=== PATIENT | female | born 1980 | race Caucasian/White ===

== ENCOUNTER → 2021-01-16 11:27 | Outpatient (CLI) | payer OTHER, SELFPAY | PROVIDERS: PCP Family Medicine; Visit Provider Family Medicine | DX: J02.9 Acute pharyngitis, unspecified (principal) | CPT/HCPCS: 87070 ==

== ENCOUNTER → 2021-08-20 10:22 | Outpatient (CLI) | payer OTHER, SELFPAY ==
[2021-08-20 19:44] LABS: Add Manual Diff / Slide Review NO; Basophils Absolute Auto 0 /uL (0-100); Basophils Percent Auto 0.3 % (0-2); Eosinophils Absolute Auto 0 /uL (0-450); Eosinophils Percent Auto 0.8 % (2-4); Hemoglobin 13.5 g/dL (12.0-16.0); Lymphocytes Absolute Auto 1400 /uL (1100-4500); Lymphocytes Percent Auto 24.7 % (25-40); Mean Corpuscular HGB Conc 33.8 % (30-36); Mean Corpuscular Hemoglobin 30.9 PG (26-34); Mean Corpuscular Volume 91.4 fL (80-100); Monocytes Absolute Auto 400 /uL (0-900); Monocytes Percent Auto 6.7 % (3-14); Neutrophils Absolute Auto 3700 /uL (1500-7000); Neutrophils Percent Auto 67.5 % (50-75); Platelet Count 193 X10^3/uL (150-400); Red Blood Cell Count 4.37 X10^6/uL (4.0-5.2); Red Cell Distribution Width 12.2 % (11.6-14.8); White Blood Cell Count 5.6 X10^3/uL (4.5-11.0)
[2021-08-20 19:59] LABS: Alanine Aminotransferase 14 IU/L (<35); Albumin 4.8 g/dL (3.5-5.0); Albumin Globulin Ratio 1.6 (1.0-2.8); Alkaline Phosphatase 38 U/L (38-126); Aspartate Aminotransferase 26 IU/L (14-36); BUN Creatinine Ratio 19.2 (6-22); Bilirubin Total 1.1 mg/dL (0.2-1.3); Blood Urea Nitrogen 14 mg/dL (7-17); Calcium 9.8 mg/dL (8.4-10.2); Carbon Dioxide 28 mmol/L (22-32); Chloride 105 mmol/L (98-107); Estimated Glomerular Filt Rate > 60.0 mL/min (>60); Glucose 95 mg/dL (70-100); HEMOLYSIS < 15 (0-50); Potassium 4.6 mmol/L (3.4-5.1); Sodium 141 mmol/L (137-145); Total Protein 7.8 g/dL (6.3-8.2)
== END ==
PROVIDERS: PCP Family Medicine; Visit Provider Physician Assistant
DX: I73.00 Raynaud's syndrome without gangrene (principal)
CPT/HCPCS: 80053; 85025

== ENCOUNTER → 2021-09-15 11:16 | Outpatient (CLI) | payer OTHER, SELFPAY ==
--- NOTE | 2021-09-15 11:17 | DI.MG.S_ITS ---
BILATERAL DIGITAL SCREENING MAMMOGRAM 3D/2D WITH CAD: 09/15/2021 CLINICAL: Routine screening. Baseline exam. No prior exams were available for comparison. The tissue of both breasts is heterogeneously dense. This may lower the sensitivity of mammography. Current study was also evaluated with a Computer Aided Detection (CAD) system. No significant masses, calcifications, or other findings are seen in either breast. IMPRESSION: NEGATIVE There is no mammographic evidence of malignancy. A 1 year screening mammogram is recommended. This exam was interpreted at Station ID: [id number]. NOTE: For mammograms, a report in lay terms will be sent to the patient. Approximately 15% of breast malignancies will not be visualized mammographically. In the management of a palpable breast mass, a negative mammogram must not discourage biopsy of a clinically suspicious lesion. Electronically Signed By: Pantera Nguyễn M.D., jr/milton:09/17/2021 08:48:42 letter sent: Normal Exam ACR BI-RADS Category 1: Negative 3341F
== END ==
PROVIDERS: PCP Physician Assistant; Referring Provider Physician Assistant; Visit Provider Physician Assistant
DX: Z12.31 Encounter for screening mammogram for malignant neoplasm of breast (principal)
CPT/HCPCS: 77063; 77067

== ENCOUNTER → 2022-11-15 10:51 | Outpatient (CLI) | payer OTHER, SELFPAY ==
--- NOTE | 2022-11-15 | DI.MG.S_ITS ---
BILATERAL DIGITAL SCREENING MAMMOGRAM 3D/2D WITH CAD: 11/15/2022 CLINICAL: Routine screening. Family history of breast cancer. Comparison is made to exam dated: 09/15/2021 mammogram - [facility]. Both breasts are extremely dense, which lowers the sensitivity of mammography (category d />75% glandular tissue). Current study was also evaluated with a Computer Aided Detection (CAD) system. No significant masses, calcifications, or other findings are seen in either breast. There has been no significant interval change. IMPRESSION: NEGATIVE There is no mammographic evidence of malignancy. A 1 year screening mammogram is recommended. Based on the Tyrer Cuzick model (a risk assessment model) the patient's lifetime risk is 19.7% and her 10 year risk is 2.8%. According to the ACR, ACS, and NCCN guidelines, an annual breast MRI exam along with mammogram is recommended if the patient's lifetime risk is 20% or greater. This exam was interpreted at Station ID: [id number]. NOTE: For mammograms, a report in lay terms will be sent to the patient. Approximately 15% of breast malignancies will not be visualized mammographically. In the management of a palpable breast mass, a negative mammogram must not discourage biopsy of a clinically suspicious lesion. Electronically Signed By: Bennie eaton/milton:11/15/2022 13:22:23 letter sent: Normal Exam ACR BI-RADS Category 1: Negative 3341F
== END ==
PROVIDERS: PCP Physician Assistant; Referring Provider Physician Assistant; Visit Provider Physician Assistant
DX: Z12.31 Encounter for screening mammogram for malignant neoplasm of breast (principal); Z80.3 Family history of malignant neoplasm of breast
CPT/HCPCS: 77063; 77067

== ENCOUNTER → 2023-02-03 12:10 | Outpatient (CLI) | payer OTHER, SELFPAY ==
--- NOTE | 2023-02-03 12:11 | DI.MG.S_ITS ---
UNILATERAL RIGHT DIGITAL DIAGNOSTIC MAMMOGRAM 3D/2D: 02/03/2023 CLINICAL: Right breast mastodynia. Comparison is made to exams dated: 11/15/2022 mammogram and 09/15/2021 mammogram - [facility]. The right breast is extremely dense, which lowers the sensitivity of mammography (category d />75% glandular tissue). No significant masses, calcifications, or other findings are seen in the breast. IMPRESSION: NEGATIVE There is no abnormality seen in the right breast to correspond with the diffuse area of clinical concern, however, clinical correlation and clinical followup are recommended. There is no mammographic evidence of malignancy. Return to annual mammogram screening schedule is recommended. Based on the Tyrer Cuzick model (a risk assessment model) the patient's lifetime risk is 19.7% and her 10 year risk is 3.0%. According to the ACR, ACS, and NCCN guidelines, an annual breast MRI exam along with mammogram is recommended if the patient's lifetime risk is 20% or greater. This exam was interpreted at Station ID: [id number]. NOTE: For mammograms, a report in lay terms will be sent to the patient. Approximately 15% of breast malignancies will not be visualized mammographically. In the management of a palpable breast mass, a negative mammogram must not discourage biopsy of a clinically suspicious lesion. Electronically Signed By: Josep Levin M.D. lc/:02/03/2023 12:49:22 letter sent: Clinical Evaluation ACR BI-RADS Category 1: Negative 3341F
== END ==
PROVIDERS: PCP Physician Assistant; Referring Provider Physician Assistant; Visit Provider Physician Assistant
DX: N64.4 Mastodynia (principal)
CPT/HCPCS: 77065; G0279

== ENCOUNTER → 2023-06-02 11:53 | Outpatient (CLI) | payer OTHER, SELFPAY ==
[2023-06-02 19:53] LABS: BUN Creatinine Ratio 17.1 (6-22); Blood Urea Nitrogen 13 mg/dL (7-17); Calcium 9.7 mg/dL (8.4-10.2); Carbon Dioxide 30 mmol/L (22-32); Chloride 100 mmol/L (98-107); Estimated Glomerular Filt Rate > 60 mL/min (>60); Glucose 99 mg/dL (70-100); HEMOLYSIS < 15 (0-50); Potassium 4.1 mmol/L (3.4-5.1); Sodium 139 mmol/L (137-145)
[2023-06-02 20:12] LABS: Vitamin D 25 Hydroxy (D3) 73.8 ng/mL (30.0-100.0)
[2023-06-02 20:17] LABS: Free T4, Direct Thyroxine 1.06 ng/dL (0.78-2.19)
[2023-06-02 20:30] LABS: Thyroid Stimulating Hormone 1.22 uIU/mL (0.47-4.68)
== END ==
PROVIDERS: PCP Family Medicine; Visit Provider Nurse Practitioner Adult Health
DX: R45.86 Emotional lability (principal)
CPT/HCPCS: 80048; 82306; 84439; 84443

== ENCOUNTER → 2023-11-17 11:19 | Outpatient (CLI) | payer OTHER, SELFPAY ==
--- NOTE | 2023-11-17 11:22 | DI.MG.S_ITS ---
BILATERAL DIGITAL SCREENING MAMMOGRAM 3D/2D WITH CAD: 11/17/2023 CLINICAL: Routine screening. Family history of breast cancer. Comparison is made to exams dated: 11/15/2022 mammogram and 09/15/2021 mammogram - [facility]. Both breasts are extremely dense, which lowers the sensitivity of mammography (category d />75% glandular tissue). Current study was also evaluated with a Computer Aided Detection (CAD) system. No significant masses, calcifications, or other findings are seen in either breast. There has been no significant interval change. IMPRESSION: NEGATIVE There is no mammographic evidence of malignancy. A 1 year screening mammogram is recommended. Based on Tyrer-Cuzick model (a risk assessment model), the patient's lifetime risk is 28.4% and her 10 year risk is 4.6%. If a patient has an elevated risk, a more comprehensive evaluation should be considered and/or a referral to a genetic counselor. The [place] [employer], [employer], and NCCN Guidelines advise the consideration of Breast MRI as an adjunct to screening mammography in patients whose Lifetime risk to develop breast cancer is 20% or higher. This exam was interpreted at Station ID: [id number]. NOTE: For mammograms, a report in lay terms will be sent to the patient. Approximately 15% of breast malignancies will not be visualized mammographically. In the management of a palpable breast mass, a negative mammogram must not discourage biopsy of a clinically suspicious lesion. Electronically Signed By: Jessica green/milton:11/17/2023 14:05:02 letter sent: Normal Exam ACR BI-RADS Category 1: Negative 3341F
== END ==
LOC: MAMMO 11:20
PROVIDERS: PCP Family Medicine; Referring Provider Family Medicine; Visit Provider Family Medicine
DX: Z12.31 Encounter for screening mammogram for malignant neoplasm of breast (principal); Z80.3 Family history of malignant neoplasm of breast; R92.343 Mammographic extreme density, bilateral breasts
CPT/HCPCS: 77063; 77067

== ENCOUNTER → 2024-12-27 11:16 | Outpatient (CLI) | payer BC, SELFPAY ==
--- NOTE | 2024-12-27 11:17 | DI.MG.S_ITS ---
MM screening mammo BI: 12/27/2024. BI-RADS: 1 CLINICAL: 44-year old female for bilateral screening mammogram. Tyrer-Cuzick lifetime risk of 17.1%. No personal or first-degree family history of breast cancer. PRIOR EXAMS 11/17/2023, 02/03/2023, 11/15/2022, 09/15/2021. MAMMOGRAPHY TECHNIQUE: 2D and 3D (tomosynthesis) digital mammographic views obtained, with additional images as needed for full coverage. Current study was also evaluated with a Computer Aided Detection (CAD) system. DENSITY D. The breasts are extremely dense, which lowers the sensitivity of mammography. MAMMOGRAPHY FINDINGS Bilateral: No suspicious mass, asymmetry, microcalcification, or other abnormality seen. IMPRESSION: * No evidence of malignancy. RECOMMENDATIONS Bilateral * Annual screening mammography. OVERALL ASSESSMENT CATEGORY BI-RADS-1: Negative. The [employer] recommends annual screening mammography beginning at age 40 for women with average risk of breast cancer. ELECTRONICALLY SIGNED: Johnnie Vera M.D. on 12/27/2024 at 05:42:27 PM PT Interpreting Station ID: [id number]
== END ==
PROVIDERS: PCP Family Medicine; Referring Provider Family Medicine; Visit Provider Family Medicine
DX: Z12.31 Encounter for screening mammogram for malignant neoplasm of breast (principal); R92.333 Mammographic heterogeneous density, bilateral breasts
CPT/HCPCS: 77063; 77067